=== PATIENT | female | born 1950 | race Caucasian/White ===

== ENCOUNTER 2019-08-16 14:16 | Emergency (ER) | payer MEDICARE | END 2019-08-16 16:58 | disposition home or self-care (01) | LOC: EDSEX 14:16 → EDH 14:16 | DX: L03.113 Cellulitis of right upper limb (principal); Z90.49 Acquired absence of other specified parts of digestive tract; Z72.0 Tobacco use; Z88.1 Allergy status to other antibiotic agents; R22.31 Localized swelling, mass and lump, right upper limb | CPT/HCPCS: 73110; 93971 ==